=== PATIENT | male | born 1970 ===

== ENCOUNTER 2025-02-19 11:35 | Observation (INO) | payer OTHER ==
[~2025-02-19] VITALS: Wt 97.0 kg
[2025-02-19 14:23] VITALS: BP 203/82
[2025-02-19] MEDS ORDERED: ASPI81CH PO (14:27)
[2025-02-19] MEDS ORDERED: ATOR80 PO (14:28)
[2025-02-19] MEDS ORDERED: CLOP75 PO (14:28)
[2025-02-19] MEDS ORDERED: Lisinopril2.5 MG PO (14:29)
[2025-02-19] MEDS ORDERED: METO25ER PO (14:29)
[2025-02-19] MEDS ORDERED: NITR.4SL SL (14:29)
[2025-02-19] MEDS ORDERED: SPIR25 PO (14:30)
--- NOTE | 2025-02-19 14:40 | NUR ---
ADMISSION NOTE DIRECT ADMISSION FROM [facility] AT APPROX 1415. PATIENT ALERT AND ORIENTED X4. ABLE TO STAND FROM GURNEY TO TRANSFER INDEPENDENTLY TO RESTROOM. REPORTING 7/10 ABD PAIN. SBP 200s, HX OF OR. DENIES CHEST PAIN, PRESSURE. REPORTS NOT TAKING HOME HTN REGIMEN THIS MORNING. MD CENTENO NOTIFIED OF ARRIVAL - MD TO PLACE ORDERS FOR BP MANAGEMENT. CURRENTLY ON ROOM AIR - SATs >90%. MILD SOB AT REST. MD ZELAYA NOTIFIED BY ANIMAL RIDE MANAGER OF ARRIVAL FOR SURGICAL CONSULT. NPO SINCE MIDNIGHT PER PATIENT. CALL LIGHT IN REACH.
[2025-02-19] MEDS ORDERED: HydrALAZINE HCl 20 MG / ML 1ML Vial IV ONE (15:00)
[2025-02-19] MEDS ORDERED: HydrALAZINE HCl 20 MG / ML 1ML Vial IV PRN (15:00)
[2025-02-19 15:03] VITALS: BP 181/79
--- NOTE | 2025-02-19 15:06 | NUR ---
UPDATE PATIENT REPORTING 01/23 ABD PAIN - AWAITING SURGICAL CONSULT. SBP 180s FOLLOWING IV HYDRALAZINE ADMINISTRATION PER EMAR. TELEMETRY PLACED PER ORDER - SHOWING SINUS 72 PER TECH. MD LAY CONTACTED W/ UPDATE. TO REVIEW CHART AND PLACE ORDERS FOR PAIN MANAGEMENT.
[2025-02-19] MEDS ORDERED: FentaNYL Citrate 50 MCG/ML 2 ML Injection IV PRN ×2 (15:10→18:35)
[2025-02-19 15:20] VITALS: BP 157/80
--- NOTE | 2025-02-19 15:58 | NUR ---
PAIN PATIENT REPORTING EXPERIENCING BRIEF RELIEF FROM ABD PAIN FOLLOWING IV FENTANYL ADMINISTRATION PER EMAR. HOWEVER, PATIENT IS NOW REPORTING 10/10 PAIN. MD LAY CONTACTED - ONE TIME DOSE OF IV DILAUDID 1MG ORDER RECEIVED.
[2025-02-19] MEDS ORDERED: HYDROmorphone HCl/Pf 1MG SYR IV ONE (16:00)
--- NOTE | 2025-02-19 16:36 | NUR ---
MD LAY AND MD CENTENO AT BEDSIDE. PLAN TO BE NPO AT MIDNIGHT W/ ECHO PRIOR TO PROCEDURE. NO NEW ORDERS RECEIVED. PATIENT CURRENTLY RESTING IN BED. RR EVEN, UNLABORED. PAIN MANAGED AT THIS TIME. CONTINOUS PULSE OX IN PLACE. CALL LIGHT IN REACH.
--- NOTE | 2025-02-19 16:45 | NUR ---
ASSUMED CARE OF PATIENT AT THIS TIME.
--- NOTE | 2025-02-19 16:54 | NUR ---
REPORT GIVEN TO NICK BONILLA TO ASSUME CARE AT THIS TIME
[2025-02-19] MEDS ORDERED: MetroNIDAZOLE 500MG/NS 100 ml 100 ML IV SCH (17:00)
[2025-02-19 17:46] LABS: BASOPHILS ABSOLUTE AUTO 0.05 K/mm3 (0.00-0.23); BASOPHILS PERCENT AUTO 0 % (0-2); EOSINOPHILS ABSOLUTE AUTO 0.03 K/mm3 (0.00-0.68); EOSINOPHILS PERCENT AUTO 0 % (0-6); Hematocrit 47.6 % (37.0-53.0); Hemoglobin 15.7 g/dL (13.5-17.5); IMMATURE GRAN ABSOLUTE AUTO 0.11 K/mm3 (0.00-0.10); IMMATURE GRAN PERCENT AUTO 1 % (0-1); LYMPHOCYTES ABSOLUTE AUTO 1.12 K/mm3 (0.84-5.20); LYMPHOCYTES PERCENT AUTO 5 % (21-46); MONOCYTES ABSOLUTE AUTO 1.06 K/mm3 (0.16-1.47); MONOCYTES PERCENT AUTO 5 % (4-13); Mean Corpuscular HGB Conc 33.0 g/dL (31.5-36.5); Mean Corpuscular Volume 81 fL (80-100); NEUTROPHILS ABSOLUTE AUTO 20.86 K/mm3 (1.96-9.15); NEUTROPHILS PERCENT AUTO 90 % (41-73); NRBC ABSOLUTE 0.00 K/mm3 (0.00-0.02); NRBC Auto 0.0 /100 WBC (0.0-0.2); Platelet Count 253 K/mm3 (150-400); RDW Coefficient Variation 13.7 % (11.7-14.2); RDW Standard Deviation 40.3 fL (35.1-46.3)
[2025-02-19 18:00] LABS: Alanine Aminotransfer (ALT/SGP 50.0 U/L (12-78); Albumin, Blood 4.1 g/dL (3.4-5.0); Albumin/Globulin Ratio 1.1 (0.8-1.8); Anion Gap 9.0 mmol/L (3-11); Aspartate Aminotrans (AST/SGOT 30.0 U/L (12-37); Bilirubin, Total 0.7 mg/dL (0.1-1.0); Blood Urea Nitrogen 15.0 mg/dL (8-24); CO2, Blood 25.0 mmol/L (21-32); Calcium, Blood 9.1 mg/dL (8.5-10.1); Chloride, Blood 104.0 mmol/L (98-108); Creatinine, Blood 0.54 mg/dL (0.60-1.20); Globulin, Blood 3.6 g/dL (2.2-4.0); Glucose, Blood 134.0 mg/dL (70-99); Magnesium, Blood 2.1 mg/dL (1.6-2.4); Potassium, Blood 3.9 mmol/L (3.5-5.5); Sodium, Blood 134.0 mmol/L (136-145); Total Protein, Blood 7.7 g/dL (6.4-8.2)
[2025-02-19] MEDS ORDERED: Ciprofloxacin 400MG/D5 200ML 200 ML IV SCH (18:00)
[2025-02-19] MEDS ORDERED: NS 0 ML IV ONE (18:10)
[2025-02-19] MEDS ORDERED: NS 250 ML IV PRN (18:15)
[2025-02-19] MEDS ORDERED: HYDROmorphone HCl/Pf 1MG SYR IV PRN (18:35)
[2025-02-19 18:36] VITALS: BP 170/74
--- NOTE | 2025-02-19 18:40 | NUR ---
PT HAS BEEN STABLE SINCE ADMISSION. PLAN FOR ECHO AND OR TOMORROW. TROP NEGATIVE. NPO AFTER MIDNIGHT. STARTED ON IV ABX. PAIN MEDICATION CHANGED PT WAS EXPRESSING NO PAIN RELIEF. CONT BIOX ORDERED. PT CALLS APPROPRIATELY NEEDED.
[2025-02-19] MEDS ORDERED: Lactobacil 2-S.Thermo-Bifido 1 1 Cap PO SCH (20:00)
--- NOTE | 2025-02-19 21:59 | NUR ---
[address] OF [address] DEPRESSION. PT ASSESSED. PT DENIES CHEST PAIN/PRESSURE, SOB, N&V.
[2025-02-19 23:54] VITALS: BP 150/75
[2025-02-20] VITALS (16 sets, daily range): BP systolic 99–170; BP diastolic 61–90
--- NOTE | 2025-02-20 02:23 | NUR ---
0220- [employer] LAP TENDER CALLED AND REPORTED ST DEPRESSION ON TELE. PT ASSESSED AND DENIES CX PAIN/ PRESSURE OR SOB. NO NEW COMPLAINTS.
--- NOTE | 2025-02-20 05:53 | NUR ---
SHIFT ASSESSMENT NEURO- A&O X4, DENIES N&T. PT SLEEPY RESPONDS TO VERBAL STIMULI. MUSCULO/SKEL- IND IN ROOM, EQUAL STRENGTH THROUGHOUT EXTREMITIES RESPIRATORY- UPPER BS CLEAR, DIM BS IN LOWER LOBES. CONT BIOX IN PLACE SPO2 >90%, EVEN UNLABAORED RESP. PT DENIES DYSPNEA. CARDIAC- TELE SINUS ARRHYTHMIA W/BBB. PT HAD [address] DEPRESSION PER EDGE BURNISHER. PT DENIES CHEST PAIN/PRESSURE, SOB, OR NAUSEA. HTN NOTED AT BEGINNING OF SHIFT. BP DECREASED ON REASSESSMENT. HX OF AR ON 01/22/25. PLAN TO HAVE PREOP ECHO ON 02/20/25. GI- PT TOLERATING LIQUIDS, NPO SINCE MIDNIGHT. BOWEL TONES HYPOACTIVE. PT DENIES N&V. PENDING LAP TIFFANIE ON 02/20/25. - URINATING INDEPENDENTLY VIA URINAL. URINE JOSE. INTEG- IV R AC AND PATENT. PURPLE DISCOLORATION OF 4TH OF R FOOT. PT STATES HE STUBBED THE TOE ON A DOOR. REPRODUCTIVE- WNL PSYCH- HX ILLICIT DRUG USE. PLEASANT AND COOPERATIVE.
--- NOTE | 2025-02-20 06:22 | NUR ---
SHIFT SUMMARY PT ADMITTED ON 02/19/25 ACUTE CHOLECYSTITIS. A&O X4. PT C/O OF PAIN THROUGHOUT SHIFT. MEDICATED PER EMAR. NPO SINCE MIDNIGHT. INDEPENDENT IN ROOM. TELE REPORTED [address] DEPRESSION. PT DENIED CHEST PAIN/PRESSURE OR SOB ON ASSESSMENT. CONT BIOX IN PLACE SP02 >90%. TELEMETRY SINUS RHYTHM RATE 94 PER ASSISTANT REFINERY OPERATOR. PLAN FOR LAP TIFFANIE PENDING ECHO THIS MORNING. UNABLE TO COMPLETE SHIFT ASSESSMENT DUE TO MEDITECH ERROR. SHIFT ASSESSMENT DOCUMENTED IN NOTES.
[2025-02-20 06:27] LABS: BASOPHILS ABSOLUTE AUTO 0.03 K/mm3 (0.00-0.23); BASOPHILS PERCENT AUTO 0 % (0-2); EOSINOPHILS ABSOLUTE AUTO 0.09 K/mm3 (0.00-0.68); EOSINOPHILS PERCENT AUTO 0 % (0-6); Hematocrit 44.8 % (37.0-53.0); Hemoglobin 15.1 g/dL (13.5-17.5); IMMATURE GRAN ABSOLUTE AUTO 0.11 K/mm3 (0.00-0.10); IMMATURE GRAN PERCENT AUTO 1 % (0-1); LYMPHOCYTES ABSOLUTE AUTO 1.29 K/mm3 (0.84-5.20); LYMPHOCYTES PERCENT AUTO 6 % (21-46); MONOCYTES ABSOLUTE AUTO 1.45 K/mm3 (0.16-1.47); MONOCYTES PERCENT AUTO 7 % (4-13); Mean Corpuscular HGB Conc 33.7 g/dL (31.5-36.5); Mean Corpuscular Volume 80 fL (80-100); NEUTROPHILS ABSOLUTE AUTO 17.74 K/mm3 (1.96-9.15); NEUTROPHILS PERCENT AUTO 86 % (41-73); NRBC ABSOLUTE 0.00 K/mm3 (0.00-0.02); NRBC Auto 0.0 /100 WBC (0.0-0.2); Platelet Count 246 K/mm3 (150-400); RDW Coefficient Variation 13.8 % (11.7-14.2); RDW Standard Deviation 40.3 fL (35.1-46.3)
[2025-02-20 06:53] LABS: Alanine Aminotransfer (ALT/SGP 41.0 U/L (12-78); Albumin, Blood 3.5 g/dL (3.4-5.0); Albumin/Globulin Ratio 1.1 (0.8-1.8); Anion Gap 9.0 mmol/L (3-11); Aspartate Aminotrans (AST/SGOT 23.0 U/L (12-37); Bilirubin, Total 1.1 mg/dL (0.1-1.0); Blood Urea Nitrogen 14.0 mg/dL (8-24); CO2, Blood 25.0 mmol/L (21-32); Calcium, Blood 8.6 mg/dL (8.5-10.1); Chloride, Blood 101.0 mmol/L (98-108); Creatinine, Blood 0.69 mg/dL (0.60-1.20); Globulin, Blood 3.3 g/dL (2.2-4.0); Glucose, Blood 145.0 mg/dL (70-99); Potassium, Blood 4.1 mmol/L (3.5-5.5); Sodium, Blood 131.0 mmol/L (136-145); Total Protein, Blood 6.8 g/dL (6.4-8.2)
--- NOTE | 2025-02-20 11:06 | NUR ---
PT OFF UNIT FOR PROCEDURE
[2025-02-20] MEDS ORDERED: Bupivacaine 0.5% HCl 5 MG/ML 30MLVIAL ONE (11:18)
[2025-02-20] MEDS ORDERED: Midazolam HCl 1MG / ML 2ML Vial ONE (11:29)
[2025-02-20] MEDS ORDERED: FentaNYL Citrate 50 MCG/ML 2 ML Injection ONE (11:29)
[2025-02-20] MEDS ORDERED: Dexamethasone Sod Phos 10 MG/ML 1ML VIAL ONE (11:33)
[2025-02-20] MEDS ORDERED: Rocuronium Bromide 10 MG/ML 5ML Injection IV ONE ×2 (11:33→12:13)
[2025-02-20] MEDS ORDERED: Ondansetron HCl 2 MG / ML 2ML Vial IV PRN (11:55)
[2025-02-20] MEDS ORDERED: FentaNYL Citrate 50 MCG/ML 2 ML Injection IV PRN (11:55)
[2025-02-20] MEDS ORDERED: HYDROmorphone HCl/Pf 1MG SYR IV PRN (11:55)
[2025-02-20] MEDS ORDERED: HYDROmorphone HCl/Pf 1MG SYR ONE (12:01)
[2025-02-20] MEDS ORDERED: CeFAZolin Sodium 2,000 MG VIAL ONE (12:02)
[2025-02-20] MEDS ORDERED: Ketorolac Tromethamine 30mg Vial ONE (12:37)
[2025-02-20] MEDS ORDERED: Sugammadex Sodium 200 MG/2ML SDV (100 MG/ML) ONE (12:38)
[2025-02-20] MEDS ORDERED: HYDROcodone 5-APAP 325 TAB PO PRN (13:10)
--- NOTE | 2025-02-20 13:43 | NUR ---
ARRIVAL TO SURG FLOOR POST PROCEDURE ARRIVED TO SURG FLOOR VIA HOSP BED @ 1330. VSS, HRR. TELE - SINUS RHYTHM IN 70'S PER [employer] [employer] W[employer]. ON 3 L O2 NC, SATS 90-93%. LAP SITES x4 w/STERI STRIPS, C/D/I. SNACKS AND DRINKS GIVEN. DENIES PAIN AT THIS TIME. CALL LIGHT WITHIN REACH.
--- NOTE | 2025-02-20 16:51 | NUR ---
SHIFT SUMMARY ADMITED ON 02/19 FOR CHOLESYSTITIS. POD 0 LAP TIFFANIE. A&O x4, VSS, HRR, LUNGS CLEAR. TITRATED TO RA POST-PROCEDURE. LAP SITES x4, C/D/I. ADVANCED TO REGULAR DIET, TOLERATING WELL, NO N/V. STATES NO PAIN POST PROCEDURE. DENIES PASSING GAS. AWAITING POST OP VOID. CALL LIGHT WITHIN REACH.
[2025-02-21 03:59] VITALS: BP 150/79
[2025-02-21 04:39] LABS: BASOPHILS ABSOLUTE AUTO 0.03 K/mm3 (0.00-0.23); BASOPHILS PERCENT AUTO 0 % (0-2); EOSINOPHILS ABSOLUTE AUTO 0.00 K/mm3 (0.00-0.68); EOSINOPHILS PERCENT AUTO 0 % (0-6); Hematocrit 45.3 % (37.0-53.0); Hemoglobin 14.9 g/dL (13.5-17.5); IMMATURE GRAN ABSOLUTE AUTO 0.15 K/mm3 (0.00-0.10); IMMATURE GRAN PERCENT AUTO 1 % (0-1); LYMPHOCYTES ABSOLUTE AUTO 1.19 K/mm3 (0.84-5.20); LYMPHOCYTES PERCENT AUTO 5 % (21-46); MONOCYTES ABSOLUTE AUTO 1.47 K/mm3 (0.16-1.47); MONOCYTES PERCENT AUTO 7 % (4-13); Mean Corpuscular HGB Conc 32.9 g/dL (31.5-36.5); Mean Corpuscular Volume 83 fL (80-100); NEUTROPHILS ABSOLUTE AUTO 19.55 K/mm3 (1.96-9.15); NEUTROPHILS PERCENT AUTO 87 % (41-73); NRBC ABSOLUTE 0.00 K/mm3 (0.00-0.02); NRBC Auto 0.0 /100 WBC (0.0-0.2); Platelet Count 242 K/mm3 (150-400); RDW Coefficient Variation 13.8 % (11.7-14.2); RDW Standard Deviation 41.3 fL (35.1-46.3)
[2025-02-21 05:14] LABS: Alanine Aminotransfer (ALT/SGP 53.0 U/L (12-78); Albumin, Blood 3.2 g/dL (3.4-5.0); Albumin/Globulin Ratio 0.9 (0.8-1.8); Anion Gap 10.0 mmol/L (3-11); Aspartate Aminotrans (AST/SGOT 33.0 U/L (12-37); Bilirubin, Total 0.6 mg/dL (0.1-1.0); Blood Urea Nitrogen 24.0 mg/dL (8-24); CO2, Blood 26.0 mmol/L (21-32); Calcium, Blood 8.5 mg/dL (8.5-10.1); Chloride, Blood 102.0 mmol/L (98-108); Creatinine, Blood 0.83 mg/dL (0.60-1.20); Globulin, Blood 3.5 g/dL (2.2-4.0); Glucose, Blood 127.0 mg/dL (70-99); Potassium, Blood 4.5 mmol/L (3.5-5.5); Sodium, Blood 133.0 mmol/L (136-145); Total Protein, Blood 6.7 g/dL (6.4-8.2)
--- NOTE | 2025-02-21 05:59 | NUR ---
SHIFT SUMMARY PT ADMITTED ON 02/19/25 ACUTE CHOLECYSTITIS. POD 1 LAP TIFFANIE. A&O X4. NO ACUTE CHANGES THIS SHIFT. 4 LAP SITES C/D/I. PT TOLERATING REGULAR DIET. PT DENIES N&V. PT STATES NO PAIN POST PROCEDURE. PT DENIES PASSING FLATUS. PT VOIDING INDEPENDENTLY VIA URINAL. TELEMETRY SINUS RHYTHM RATE 74 PER SCHOOL COMMISSIONER. CALL LIGHT WITHIN REACH. CARE PLAN ONGOING.
[2025-02-21 07:16] VITALS: BP 138/81
[2025-02-21] MEDS ORDERED: Enoxaparin 40 MG/0.4 ML SYR SC SCH (09:00)
[2025-02-21] MEDS ORDERED: JARDIANCE10 MG PO (11:22)
[2025-02-21] MEDS ORDERED: HYDROCODONE-AC1 EA10 PO (11:22)
--- NOTE | 2025-02-21 11:36 | NUR ---
DISCHARGE SUMMARY POD 1 LAP TIFFANIE. A&O x4, VSS, HRR, LUNGS CLEAR. TELEMETRY SHOWING SINUS PRIOR TO REMOVAL. TITRATED TO RA THIS MORNING, SATS >93%. HX OF SHAY W/ NO CPAP USE - DID REQUIRE 2L VIA NC W/ SLEEP. INSTRUCTED TO FOLLOW UP W/ PCP. ABDOMINAL LAP SITES x4 w/STERI STRIPS, C/D/I. MILD ABD TENDERNESS UPON PALPATION, NO PAIN. TOLERATING REGULAR DIET WELL. VOIDED SUCCESSFULLY. DISCHARGE INSTRUCTIONS REVIEWED & GIVEN. WRITTEN SCRIPT SENT. ESCORTED OUT VIA WC.
== END 2025-02-21 11:36 | disposition home or self-care (01) ==
LOC: SURS 11:35
PROVIDERS: Student in an Organized Health Care Education/Training Program; Surgery; ADMIT Internal Medicine
PROC: 0FT44ZZ Resection of Gallbladder, Percutaneous Endoscopic Approach (ICD-10-PCS; principal; 2025-02-20 10:30)
DX: K80.12 Calculus of gallbladder with acute and chronic cholecystitis without obstruction (principal); I25.10 Atherosclerotic heart disease of native coronary artery without angina pectoris; I25.2 Old myocardial infarction; I11.0 Hypertensive heart disease with heart failure; I50.9 Heart failure, unspecified; F17.210 Nicotine dependence, cigarettes, uncomplicated; F15.20 Other stimulant dependence, uncomplicated; Z79.02 Long term (current) use of antithrombotics/antiplatelets; Z79.82 Long term (current) use of aspirin; Z79.899 Other long term (current) drug therapy; Z88.0 Allergy status to penicillin
CPT/HCPCS: 36415; 80053; 83605; 83735; 85025; 87040; 88304; 93005; 93010; 93306; 94760; 94762; 96374; 96375; 96376; A9270; G0378; G0379; J0360; J0690; J0744; J1100; J1171; J1650; J1885; J2250; J2704; J3010; J7040; J7050; J7120